=== PATIENT | female | born 1995 | race Asian ===

== ENCOUNTER 2018-02-23 21:13 | Emergency (ER) | payer BC ==
[~2018-02-23] VITALS: Ht 160 cm; Wt 108.9 kg
[2018-02-23 21:51] VITALS: BP 126/79
== END 2018-02-24 00:38 | disposition home or self-care (01) ==
LOC: ER 21:13
DX: S93.402A Sprain of unspecified ligament of left ankle, initial encounter (principal); W22.8XXA Striking against or struck by other objects, initial encounter; Y93.89 Activity, other specified; Y99.8 Other external cause status; Y92.89 Other specified places as the place of occurrence of the external cause
CPT/HCPCS: 73630; 99284; L3260